=== PATIENT | female | born 1960 | race Caucasian/White ===

== ENCOUNTER 2020-12-05 16:00 | Emergency (ER) | payer BC ==
[~2020-12-05] VITALS: Ht 167.6 cm; Wt 83.9 kg
[2020-12-05] MEDS ORDERED: DOXYCYCLINE 10100 MG PO (16:20)
[2020-12-05 16:23] VITALS: BP 133/77
--- NOTE | 2020-12-06 07:30 | EKG ---
[facility] [place] [address] ELECTROCARDIOGRAM REPORT Name: GERMAN FLOOD [id number] Admission: 12/05/20 Attend Phys: Discharge: 12/05/20 Date of : 60 Report #: [id number] [facility] ED Test Date: 2020-12-05 Test Time: 16:38:18 Pat Name: GERMAN FLOOD Department: Room: Gender: F Model Maker: RYLIE : 1960 Requested By: Osorio Gamboa Order Number: [id number] MD: Dom Sotomayor Measurements Intervals [place] Rate: 102 P: 35 LA: 160 QRS: -34 QRSD: 108 T: 113 QT: 389 QTc: 507 Interpretive Statements Sinus tachycardia Probable left atrial enlargement LVH with secondary repolarization abnormality Borderline prolonged QT interval Baseline wander in lead(s) II No previous ECG available for comparison Electronically Signed On 12-06-2020 7:30:25 CDT by Dom Sotomayor [email or web address] <ELECTRONICALLY SIGNED> By: Dom Sotomayor MD, [facility] 12/06/20 0730 [id number] 37 Dom Sotomayor MD, FAC /EPI
== END 2020-12-05 16:23 | disposition home or self-care (01) ==
LOC: ER 16:00
DX: L03.116 Cellulitis of left lower limb (principal); Z88.2 Allergy status to sulfonamides